=== PATIENT | female | born 1955 | race Caucasian/White ===

== ENCOUNTER 2018-07-02 13:52 | Emergency (ER) | payer OTHER ==
[~2018-07-02] VITALS: Ht 149.9 cm; Wt 68.0 kg
== END 2018-07-03 15:11 | disposition left against medical advice (07) ==
LOC: ER 13:52 → CPU-OBS 14:43 → ER 14:43 → SEC-K 18:32 → MEDI 07-03 13:23 → ER 07-03 13:23 → MEDI 07-03 13:54 → ER 07-03 15:11 → SEC-K 07-03 15:50 → MEDI 07-03 15:50
DX: I16.0 Hypertensive urgency (principal); I10 Essential (primary) hypertension; R10.32 Left lower quadrant pain; N39.0 Urinary tract infection, site not specified
CPT/HCPCS: G0378; G0379; 51702; 76770; 93005